=== PATIENT | female | born 1980 | race African-American/Black ===

== ENCOUNTER 2018-11-27 22:53 | Emergency (ER) | payer OTHER, SELFPAY ==
--- NOTE | 2018-11-28 00:54 | ER ---
Nurse's Notes [facility] Name: Claudia Billingsley Age: 38 yrs Sex: Female : 1980 Arrival Date: 11/27/2018 Time: 22:57 Bed 7 Private MD: Diagnosis: Flu-like illness Presentation: 11/27 23:14 Presenting complaint: Patient states: "I am having a headache, heavy cough and sore jd3 throat from 1 week.". Transition of care: patient was not received from another setting of care. Onset of symptoms was November 20, 2018. Risk Assessment: Do you want to hurt yourself or someone else? Patient reports no desire to harm self or others. Initial Sepsis Screen: Does the patient meet any 2 criteria? No. Patient's initial sepsis screen is negative. Does the patient have a suspected source of infection? No. Patient's initial sepsis screen is negative. Care prior to arrival: None. 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 - Social history:: Smoking status: Patient/guardian denies using tobacco. - Ebola Screening: : Patient negative for fever greater than or equal to 101.5 degrees Fahrenheit, and additional compatible Ebola Virus Disease symptoms. Screenin:20 Abuse screen: Denies threats or abuse. Nutritional screening: No deficits noted. jd3 Tuberculosis screening: No symptoms or risk factors identified. Fall Risk Ambulatory Aid- None/Bed Rest/Nurse Assist (0 pts). Gait- Normal/Bed Rest/Wheelchair (0 pts) Mental Status- Oriented to own ability (0 pts). Total Suarez Fall Scale indicates No Risk (0-24 pts). Assessment: 23:18 General: Appears in no apparent distress. uncomfortable, Behavior is calm, cooperative, jd3 appropriate for age. Pain: Complains of pain in head Quality of pain is described as aching. Neuro: Level of Consciousness is awake, alert, obeys commands, Oriented to person, place, time, situation. Cardiovascular: Heart tones S1 S2 present Capillary refill < 3 seconds Patient's skin is warm and dry. Respiratory: Reports cough that is Airway is patent Respiratory effort is even, unlabored, Respiratory pattern is regular, symmetrical, Breath sounds are clear bilaterally. GI: No signs and/or symptoms were reported involving the gastrointestinal system. : No signs and/or symptoms were reported regarding the genitourinary system. EENT: Reports sore throat. Derm: Skin is intact, Skin is dry, Skin is normal, Skin temperature is warm. Musculoskeletal: Circulation, motion, and sensation intact. Range of motion: intact in all extremities. 11/28 00:29 Reassessment: Patient appears in no apparent distress at this time. Patient and/or jd3 family updated on plan of care and expected duration. Pain level reassessed. Patient is alert, oriented x 3, equal unlabored respirations, skin warm/dry/pink. 00:58 Reassessment: Patient appears in no apparent distress at this time. Patient and/or jd3 family updated on plan of care and expected duration. Pain level reassessed. Patient is alert, oriented x 3, equal unlabored respirations, skin warm/dry/pink. Vital Signs: 11/27 23:17 BP 137 / 88; Pulse 110; Resp 20 S; Temp 99.0(O); Pulse Ox 100% on R/A; Weight 102.06 kg jd3 (R); Height 5 ft. 3 in. (160.02 cm) (R); Pain 5/10; 11/28 00:29 BP 145 / 89; Pulse 93; Resp 17 S; Pulse Ox 100% on R/A; jd3 11/27 23:17 Body Mass Index 39.86 (102.06 kg, 160.02 cm) d3 ED Course: 11/27 22:57 Patient arrived in ED. mr 23:07 Gracia Louis, RN is Primary Nurse. tl3 23:08 Primary Nurse role handed off by Gracia Louis, RN jd3 23:08 Kwadwo Marie RN is Primary Nurse. jd3 23:15 Triage completed. jd3 23:18 Arm band placed on. jd3 23:20 Patient has correct armband on for positive identification. Bed in low position. Call jd3 light in reach. Side rails up X 1. Adult w/ patient. 11/28 00:21 Rajendra Gonzales MD is Attending Physician. ps1 00:58 No provider procedures requiring assistance completed. Patient did not have IV access jd3 during this emergency room visit. Administered Medications: No medications were administered Outcome: 00:53 Discharge ordered by . ps1 00:59 Discharged to home ambulatory. jd3 00:59 Condition: stable 00:59 Discharge instructions given to patient, Instructed on discharge instructions, follow up and referral plans. medication usage, Demonstrated understanding of instructions, follow-up care, medications, Prescriptions given X 2. 01:01 Patient left the ED. jd3 Signatures: Mayuri Leal Cynthia, Kwadwo, RN RN Rajendra Sanchez MD MD ps1 Gracia Louis RN RN tl3
--- NOTE | 2018-11-28 00:55 | EDPHYS ---
Physician Documentation [facility] Name: Claudia Billingsley Age: 38 yrs Sex: Female : 1980 Arrival Date: 11/27/2018 Time: 22:57 Bed 7 Private MD: ED Physician Rajendra Gonzales HPI: 11/28 00:45 This 38 yrs old Black Female presents to ER via Ambulatory with complaints of Flu ps1 Symptoms. 00:45 patient has had flu like symptoms for 6 days says nothing is working. Has FLORES, sore ps1 throat, cough, fatigue, body aches. Tried tylenol cold and flu and not better. No flu shot. . 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 - Social history:: Smoking status: Patient/guardian denies using tobacco. - Ebola Screening: : Patient negative for fever greater than or equal to 101.5 degrees Fahrenheit, and additional compatible Ebola Virus Disease symptoms. ROS: 11/28 00:51 Eyes: Negative for injury, pain, redness, and discharge, Cardiovascular: Negative for ps1 chest pain, palpitations, and edema, Abdomen/GI: Negative for abdominal pain, nausea, vomiting, diarrhea, and constipation, Back: Negative for injury and pain, MS/Extremity: Negative for injury and deformity, Skin: Negative for injury, rash, and discoloration, Neuro: Negative for headache, weakness, numbness, tingling, and seizure. Constitutional: Positive for body aches, chills, fatigue, malaise. Respiratory: Positive for cough, with no reported sputum. Exam: 00:51 Constitutional: This is a well developed, well nourished patient who is awake, alert, ps1 and in no acute distress. Head/Face: Normocephalic, atraumatic. Eyes: Pupils equal round and reactive to light, extra-ocular motions intact. Lids and lashes normal. Conjunctiva and sclera are non-icteric and not injected. Chest/axilla: Normal chest wall appearance and motion. Nontender with no deformity. No lesions are appreciated. Cardiovascular: Regular rate and rhythm. No gallops, murmurs, or rubs. Normal PMI, no JVD. No pulse deficits. Respiratory: Lungs have equal breath sounds bilaterally, clear to auscultation and percussion. No rales, rhonchi or wheezes noted. No increased work of breathing, no retractions or nasal flaring. Abdomen/GI: Soft, non-tender, with normal bowel sounds. No distension or tympany. No guarding or rebound. No evidence of tenderness throughout. MS/ Extremity: Pulses equal, no cyanosis. Neurovascular intact. Full, normal range of motion. Neuro: Awake and alert, GCS 15, oriented to person, place, time, and situation. Cranial nerves II-XII grossly intact. Sensory grossly intact. Psych: Awake, alert, with orientation to person, place and time. Behavior, mood, and affect are within normal limits. Vital Signs: 11/27 23:17 BP 137 / 88; Pulse 110; Resp 20 S; Temp 99.0(O); Pulse Ox 100% on R/A; Weight 102.06 kg jd3 (R); Height 5 ft. 3 in. (160.02 cm) (R); Pain 5/10; 11/28 00:29 BP 145 / 89; Pulse 93; Resp 17 S; Pulse Ox 100% on R/A; jd3 11/27 23:17 Body Mass Index 39.86 (102.06 kg, 160.02 cm) jd3 MDM: 00:51 Data reviewed: vital signs, nurses notes, and as a result, I will discharge patient. ps1 Counseling: I had a detailed discussion with the patient and/or guardian regarding: the historical points, exam findings, and any diagnostic results supporting the discharge/admit diagnosis. ED course: OOW for tamiflu. Home with symptomatic meds. . 00:53 Patient medically screened. ps1 Administered Medications: No medications were administered Disposition: 11/28/18 00:53 Discharged to Home. Impression: Flu-like illness. - Condition is Stable. - Discharge Instructions: Influenza, Adult. - Prescriptions for promethazine- codeine 6.25-10 mg/5 mL Oral syrup - take 5 milliliter by ORAL route every 4-6 hours as needed, not to exceed 30 mL in 24 hours; 120 milliliter. Anaprox DS 550 mg Oral Tablet - take 1 tablet by ORAL route every 12 hours As needed; 20 tablet. - Medication Reconciliation Form, Thank You Letter, Antibiotic Education, Prescription Opioid Use form. - Follow up: Private Physician; When: As needed; Reason: If symptoms return, Further diagnostic work-up, Recheck today's complaints, Continuance of care. Follow up: Emergency Department; When: As needed; Reason: Worsening of condition. - Problem is new. - Symptoms are unchanged. Signatures: Kwadwo Marie RN RN jd3 Rajendra Gonzales MD MD ps1 Corrections: (The following items were deleted from the chart) 01:01 00:53 11/28/2018 00:53 Discharged to Home. Impression: Flu-like illness. Condition is jd3 Stable. Forms are Medication Reconciliation Form, Thank You Letter, Antibiotic Education, Prescription Opioid Use. Follow up: Private Physician; When: As needed; Reason: If symptoms return, Further diagnostic work-up, Recheck today's complaints, Continuance of care. Follow up: Emergency Department; When: As needed; Reason: Worsening of condition. Problem is new. Symptoms are unchanged. ps1
[2018-11-28 01:47] VITALS: TEMP 99; O2SAT 100
[2018-11-28 01:49] VITALS: BP 145/89
== END 2018-11-28 01:01 | disposition home or self-care (01) ==
LOC: ER 22:53
DX: J11.1 Influenza due to unidentified influenza virus with other respiratory manifestations (principal); Z88.8 Allergy status to other drugs, medicaments and biological substances

== ENCOUNTER 2021-02-16 12:14 | Emergency (ER) | payer SELFPAY ==
[2012-07-17 08:24] VITALS: BP 149/83
[2021-02-16 13:13] LABS: Urine Blood 2+ (Negative); Urine Glucose Negative (Negative); Urine Protein Negative (Negative); Urine Specific Gravity 1.025 (1.005-1.030); Urine pH 5.5 (5.0-7.0)
[2021-02-16 13:14] LABS: Absolute Lymphocytes (CBC) 1.7 K/uL (0.7-4.9); Basophils % 0.9 % (0-1.3); Hematocrit 36.4 % (36.0-45.0); Lymphocytes % 21.7 % (15.3-44.8); MPV 9.5 fL (7.6-11.3); RBC Red Blood Cell Count 4.99 M/uL (3.86-4.86)
[2021-02-16 13:15] LABS: Urine Specific Gravity/Preg 1.025 (1.005-1.030)
[2021-02-16 13:20] LABS: Urine Bacteria 20-50 /HPF (<20); Urine RBC <5 /HPF (NONE SEEN); Urine Trichomonas PRESENT (NONE SEEN)
[2021-02-16] MEDS ORDERED: NA CHLORIDE 0.9% 1,000 ML ONE (13:20)
[2021-02-16 13:26] LABS: ALT/SGPT 20 U/L (12-78); AST/SGOT 14 U/L (15-37); Albumin 3.4 g/dL (3.4-5.0); Alkaline Phosphatase 115 U/L (45-117); BUN Blood Urea Nitrogen 10 mg/dL (7-18); Bicarbonate 26 mmol/L (21-32); Bilirubin Direct 0.1 mg/dL (0-0.2); Bilirubin Total 0.4 mg/dL (0.2-1.0); Glucose Level 95 mg/dL (74-106); Lipase 76 U/L (73-393); Potassium 3.8 mmol/L (3.5-5.1); Protein, Total 8.3 g/dL (6.4-8.2); Sodium Level 138 mmol/L (136-145)
--- NOTE | 2021-02-16 13:54 | RAD REPORT ---
EXAM DESCRIPTION: CT - Abdomen Pelvis W Contrast - 02/16/2021 1:38 pm CLINICAL HISTORY: ABD PAIN, right lower quadrant pain x3 days COMPARISON: No comparisons TECHNIQUE: Biphasic, helical CT imaging of the abdomen and pelvis was performed following 100 ml non -ionic IV contrast. No oral contrast administered. All CT scans are performed using dose optimization technique as appropriate and may include automated exposure control or mA/KV adjustment according to patient size. FINDINGS: No suspicious findings in the lung bases. Liver shows a borderline to mild fatty infiltration pattern with no focal lesion. No portal vein abno rmality. No pancreas or spleen abnormality. Cholecystectomy clips are present. Biliary tree within no rmal limits. Symmetric renal function is seen with no hydronephrosis or suspicious renal mass. No pyelonephritis o r acute parenchymal process. No bladder abnormalities. No adrenal abnormalities. Uterus and left ovary show no suspicious findings. There is a 6 centimeter diameter predominantly cys tic mass in the anterior right pelvis. Within superior aspect of this cystic mass there is a 3.5 x 2. 5 cm fat attenuation mass component (-10 HU). A 1.1 centimeter solid-appearing component is seen infe riorly with a punctate calcification. This is most likely a right ovarian teratoma/dermoid. No ruptur e or acute hemorrhage of the mass. No dilated bowel loops or bowel wall thickening. Appendix is normal. No free air, free fluid or infla mmatory stranding. No hernia, mass or bulky lymphadenopathy. No suspicious bony findings. IMPRESSION: Approximately 6 centimeter sized right ovarian teratoma/ dermoid. No hemorrhage or rupt ure changes identifiable. Additional nonacute findings detailed in the body of the report.
[2021-02-16] MEDS ORDERED: DIPHENHYDRAMINE 50 MG/ML VIAL ONE (16:33)
[2021-02-16] MEDS ORDERED: FAMOTIDINE 20 MG/2 ML VIAL IV ONE (16:33)
[2021-02-16] MEDS ORDERED: dexAMETHasone 10 MG/ML VIAL ONE (16:33)
[2021-02-16] MEDS ORDERED: metroNIDAZOLE 500 MG TABLET ONE (16:34)
[2021-02-16] MEDS ORDERED: NA CHLORIDE 0.9% 250 ML ONE (16:35)
--- NOTE | 2021-02-16 19:13 | ER ---
Nurse's Notes [facility] Name: Claudia Billingsley Age: 40 yrs Sex: Female : 1980 Arrival Date: 02/16/2021 Time: 12:18 Bed 16 Private MD: Diagnosis: Unspecified ovarian cysts;Trichomoniasis Presentation: 02/16 12:33 Chief complaint: RLQ pain x 3 days. Denies fever/N/V/D. Coronavirus screen: At this hb time, the client does not indicate any symptoms associated with coronavirus-19. Ebola Screen: No symptoms or risks identified at this time. Initial Sepsis Screen: Does the patient meet any 2 criteria? No. Patient's initial sepsis screen is negative. Does the patient have a suspected source of infection? No. Patient's initial sepsis screen is negative. Risk Assessment: Do you want to hurt yourself or someone else? Patient reports no desire to harm self or others. Onset of symptoms was February 13, 2021. 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 Flu vaccine is not up to date. - Social history:: Smoking status: Patient denies any tobacco usage or history of. Screenin:36 Abuse screen: Denies threats or abuse. Nutritional screening: No deficits noted. ll1 Tuberculosis screening: No symptoms or risk factors identified. 19:23 Fall Risk IV access (20 points). Total Suarez Fall Scale indicates No Risk (0-24 pts). ll1 Assessment: 12:37 General: Appears in no apparent distress. Behavior is calm, cooperative, appropriate ll1 for age. Pain: Complains of pain in RLQ Quality of pain is described as aching. Neuro: No deficits noted. Cardiovascular: No deficits noted. Respiratory: No deficits noted. GI: Abdomen is round Bowel sounds present X 4 quads. Abd is soft X 4 quads Reports lower abdominal pain. 13:30 Reassessment: No changes from previously documented assessment. Patient and/or family ll1 updated on plan of care and expected duration. Pain level reassessed. 14:30 Reassessment: No changes from previously documented assessment. Patient and/or family ll1 updated on plan of care and expected duration. Pain level reassessed. 15:30 Reassessment: No changes from previously documented assessment. Patient and/or family ll1 updated on plan of care and expected duration. Pain level reassessed. 16:30 Reassessment: No changes from previously documented assessment. Patient and/or family ll1 updated on plan of care and expected duration. Pain level reassessed. Patient states feeling better. 17:30 Reassessment: No changes from previously documented assessment. Patient and/or family ll1 updated on plan of care and expected duration. Pain level reassessed. 18:30 Reassessment: No changes from previously documented assessment. Patient and/or family ll1 updated on plan of care and expected duration. Pain level reassessed. 19:22 Reassessment: No changes from previously documented assessment. Patient and/or family ll1 updated on plan of care and expected duration. Pain level reassessed. Patient is alert, oriented x 3, equal unlabored respirations, skin warm/dry/pink. Vital Signs: 12:33 BP 154 / 92; Pulse 85; Resp 16; Temp 98.3; Pulse Ox 100% on R/A; Weight 102.06 kg; hb Height 5 ft. 3 in. (160.02 cm); Pain 3/10; 17:22 BP 145 / 101; Pulse 103; Resp 18; Pulse Ox 100% on R/A; ll1 19:21 BP 137 / 81; Pulse 83; Resp 17; Pulse Ox 99% ; ll1 12:33 Body Mass Index 39.86 (102.06 kg, 160.02 cm) hb ED Course: 12:18 Patient arrived in ED. ds1 12:35 Triage completed. hb 12:35 Arm band placed on. hb 12:36 Mayur Duncan, MAGALI is Primary Nurse. ll1 12:36 Patient placed in an exam room, on a stretcher. ll1 12:36 Patient has correct armband on for positive identification. Bed in low position. Call ll1 light in reach. Side rails up X 1. 12:43 Cristobal Espinoza NP is PHCP. pm1 12:43 Ronn Hatfield MD is Attending Physician. pm1 12:50 Inserted saline lock: 22 gauge in right antecubital area, using aseptic technique. ll1 Blood collected. 13:38 CT Abd/Pelvis - IV Contrast Only In Process Unspecified. EDMS 19:23 No provider procedures requiring assistance completed. IV discontinued, intact, ll1 bleeding controlled, No redness/swelling at site. Pressure dressing applied. Administered Medications: 13:03 Drug: NS 0.9% 1000 ml Route: IV; Rate: 1000 ml; Site: right antecubital; ll1 14:35 Follow up: Response: No adverse reaction; RASS: Alert and Calm (0); IV Status: ll1 Completed infusion; IV Intake: 1000ml 15:42 CANCELLED (not available in entire hospital): Tinidazole 2 grams PO once ll1 16:37 Drug: Pepcid (famotidine) 20 mg Route: IVP; Site: right antecubital; ll1 17:30 Follow up: Response: No adverse reaction; RASS: Alert and Calm (0) ll1 16:38 Drug: Decadron - Dexamethasone 10 mg Route: IVP; Site: right antecubital; ll1 17:30 Follow up: Response: No adverse reaction; RASS: Alert and Calm (0) ll1 16:38 Drug: Benadryl (diphenhydrAMINE) 25 mg Route: IVP; Site: right antecubital; ll1 17:30 Follow up: Response: No adverse reaction; RASS: Alert and Calm (0) ll1 17:22 Drug: Flagyl 2 grams Route: PO; ll1 19:23 Follow up: Response: No adverse reaction; RASS: Alert and Calm (0) ll1 Intake: 14:35 IV: 1000ml; Total: 1000ml. ll1 Outcome: 19:12 Discharge ordered by . pm1 19:23 Discharged to home ambulatory. ll1 19:23 Condition: stable 19:23 Discharge instructions given to patient, Instructed on discharge instructions, follow up and referral plans. medication usage, Demonstrated understanding of instructions, follow-up care, medications, Prescriptions given X 2. 19:24 Patient left the ED. ll1 Signatures: Dispatcher [employer] EDGA Khushbu Matson ds1 Cristobal Espinoza NP CONCESSION MANAGER pm1 Poppy Baird RN RN hb Mayur Duncan, RN RN ll1
--- NOTE | 2021-02-16 19:13 | EDPHYS ---
Physician Documentation [facility] Name: Claudia Billingsley Age: 40 yrs Sex: Female : 1980 Arrival Date: 02/16/2021 Time: 12:18 Bed 16 Private MD: ED Physician Ronn Hatfield HPI: 02/16 13:15 This 40 yrs old Black Female presents to ER via Ambulatory with complaints of R Side pm1 Pain. 13:15 The patient presents with abdominal pain right lower quadrant. Onset: The pm1 symptoms/episode began/occurred 3 day(s) ago. The symptoms do not radiate. Associated signs and symptoms: none. Pertinent negatives: nausea, vomiting, and diarrhea, chest pain, shortness of breath. The symptoms are described as achy. Modifying factors: The symptoms are alleviated by nothing, the symptoms are aggravated by nothing. Severity of pain: in the emergency department the pain is a 3 / 10. The patient has not experienced similar symptoms in the past. The patient has not recently seen a physician. MULTIC[employer]URAL [employer]NS[employer]: 19:24 LMP N/A - control method ll1 Historical: - Allergies: 12:35 Flagyl; hb - Home Meds: 12:35 None [Active]; hb - PMHx: 12:35 None; hb - PSHx: 12:35 Tubal ligation; ; Cholecystectomy; hb - Immunization history:: Client reports having NOT received the Covid vaccine. Flu vaccine is not up to date. - Social history:: Smoking status: Patient denies any tobacco usage or history of. ROS: 13:15 Constitutional: Negative for fever, chills, and weight loss, Cardiovascular: Negative pm1 for chest pain, palpitations, and edema, Respiratory: Negative for shortness of breath, cough, wheezing, and pleuritic chest pain. 13:15 Back: Negative for injury and pain, : Negative for injury, bleeding, discharge, and swelling, MS/Extremity: Negative for injury and deformity, Skin: Negative for injury, rash, and discoloration, Neuro: Negative for headache, weakness, numbness, tingling, and seizure. 13:15 Abdomen/GI: Positive for abdominal pain, of the right lower quadrant, Negative for nausea, vomiting, and diarrhea. Exam: 13:15 Constitutional: This is a well developed, well nourished patient who is awake, alert, pm1 and in no acute distress. Head/Face: Normocephalic, atraumatic. 13:15 Back: No spinal tenderness. No costovertebral tenderness. Full range of motion. Skin: Warm, dry with normal turgor. Normal color with no rashes, no lesions, and no evidence of cellulitis. MS/ Extremity: Pulses equal, no cyanosis. Neurovascular intact. Full, normal range of motion. 13:15 Cardiovascular: Exam negative for acute changes, Rate: normal, Rhythm: regular, Pulses: no pulse deficits are appreciated. 13:15 Respiratory: Exam negative for acute changes, respiratory distress, shortness of breath. 13:15 Abdomen/GI: Inspection: obese Palpation: soft, in all quadrants, mild abdominal tenderness, in the just right of suprapubic area. 13:15 Neuro: Exam negative for acute changes, Orientation: is normal, Mentation: is normal, Motor: is normal, moves all fours. Vital Signs: 12:33 BP 154 / 92; Pulse 85; Resp 16; Temp 98.3; Pulse Ox 100% on R/A; Weight 102.06 kg; hb Height 5 ft. 3 in. (160.02 cm); Pain 3/10; 17:22 BP 145 / 101; Pulse 103; Resp 18; Pulse Ox 100% on R/A; ll1 19:21 BP 137 / 81; Pulse 83; Resp 17; Pulse Ox 99% ; ll1 12:33 Body Mass Index 39.86 (102.06 kg, 160.02 cm) hb MDM: 12:43 Patient medically screened. pm1 12:49 ED course: Patient refused pain medications. Reports pain 2-3/10. pm1 14:36 Counseling: I had a detailed discussion with the patient and/or guardian regarding: the pm1 historical points, exam findings, and any diagnostic results supporting the discharge/admit diagnosis, lab results. 18:24 Medication response: Patient without any adverse reaction to flagyl. Will observe the pm1 patient further. 18:27 Data reviewed: vital signs. pm1 19:12 Medication response: Patient without any adverse reaction. Will discharge the patient pm1 home with medrol-dosepak. 02/16 12:49 Order name: Basic Metabolic Panel; Complete Time: 14:16 pm1 04/10 12:49 Order name: CBC with Diff; Complete Time: 14:16 pm1 02/16 12:49 Order name: Hepatic Function; Complete Time: 14:16 pm1 02/16 12:49 Order name: Lipase; Complete Time: 14:16 pm1 02/16 12:49 Order name: Urine Microscopic Only; Complete Time: 14:16 pm1 02/16 13:12 Order name: Urine --Ancillary (enter results); Complete Time: 14:16 eb 02/16 12:49 Order name: CT Abd/Pelvis - IV Contrast Only; Complete Time: 14:16 pm1 02/16 13:13 Order name: Urine Dipstick-Ancillary; Complete Time: 14:16 EDMS 02/16 13:22 Order name: Urine Culture EDMS 02/16 12:49 Order name: IV Saline Lock; Complete Time: 12:49 pm1 02/16 12:49 Order name: Labs collected and sent; Complete Time: 12:50 pm1 02/16 12:49 Order name: Urine Dipstick-Ancillary (obtain specimen); Complete Time: 13:03 pm1 02/16 12:49 Order name: Urine Test (obtain specimen); Complete Time: 13:03 pm1 Administered Medications: 13:03 Drug: NS 0.9% 1000 ml Route: IV; Rate: 1000 ml; Site: right antecubital; 1 14:35 Follow up: Response: No adverse reaction; RASS: Alert and Calm (0); IV Status: ll1 Completed infusion; IV Intake: 1000ml 15:42 CANCELLED (not available in entire hospital): Tinidazole 2 grams PO once ll1 16:37 Drug: Pepcid (famotidine) 20 mg Route: IVP; Site: right antecubital; ll1 17:30 Follow up: Response: No adverse reaction; RASS: Alert and Calm (0) ll1 16:38 Drug: Decadron - Dexamethasone 10 mg Route: IVP; Site: right antecubital; ll1 17:30 Follow up: Response: No adverse reaction; RASS: Alert and Calm (0) ll1 16:38 Drug: Benadryl (diphenhydrAMINE) 25 mg Route: IVP; Site: right antecubital; 1 17:30 Follow up: Response: No adverse reaction; RASS: Alert and Calm (0) ll1 17:22 Drug: Flagyl 2 grams Route: PO; ll1 19:23 Follow up: Response: No adverse reaction; RASS: Alert and Calm (0) ll1 Disposition: 02/17 07:51 Co-signature as Attending Physician, Ronn Hatfield MD. rn Disposition: 02/16/21 19:12 Discharged to Home. Impression: Unspecified ovarian cysts, Trichomoniasis. - Condition is Stable. - Discharge Instructions: Ovarian Cyst, Trichomoniasis. - Prescriptions for Tramadol 50 mg Oral Tablet - take 1 tablet by ORAL route every 8 hours as needed; 12 tablet. Medrol (Jamari) 4 mg Oral Tablets, Dose Pack - take 1 tablet by ORAL route as directed - follow package instructions; 1 packet. - Medication Reconciliation Form, Thank You Letter, Antibiotic Education, Prescription Opioid Use form. - Follow up: Emergency Department; When: As needed; Reason: Worsening of condition. Follow up: Private Physician; When: 2 - 3 days; Reason: Recheck today's complaints, Continuance of care, Re-evaluation by your physician. - Problem is new. - Symptoms have improved. Signatures: Dispatcher [employer] EDRonn Cast MD MD rn Marinas, Patrick, TRACTOR MECHANIC HELPER TRACTOR MECHANIC HELPER pm1 Poppy Baird RN RN hb Lewis, Lynsay, RN RN ll1 Corrections: (The following items were deleted from the chart) 02/16 15:42 15:31 Tinidazole 2 grams PO once ordered. pm1 ll1 19:24 19:12 02/16/2021 19:12 Discharged to Home. Impression: Unspecified ovarian cysts; ll1 Trichomoniasis. Condition is Stable. Forms are Medication Reconciliation Form, Thank You Letter, Antibiotic Education, Prescription Opioid Use. Follow up: Emergency Department; When: As needed; Reason: Worsening of condition. Follow up: Private Physician; When: 2 - 3 days; Reason: Recheck today's complaints, Continuance of care, Re-evaluation by your physician. Problem is new. Symptoms have improved. pm1
== END 2021-02-16 19:24 | disposition home or self-care (01) ==
LOC: ER 12:14
DX: N83.201 Unspecified ovarian cyst, right side (principal); A59.9 Trichomoniasis, unspecified
CPT/HCPCS: 36415; 74177; 80048; 80076; 81003; 81015; 81025; 83690; 85025; 87077; 87086; 87088; 87186; 96361; 96374; 96375; 99284; J1100; J1200; J7030; J7050; Q9967